=== PATIENT | female | born 2000 | race Caucasian/White ===

== ENCOUNTER 2024-09-24 13:55 | Outpatient (CLI) | payer BC, SELFPAY ==
--- OUTSIDE RECORDS SUMMARY | 2024-09-24 13:59 | XMS_ITS | Clinical Summary ---
[facility] Address [address] [address] Care Team Providers Care Sheet Rock Taper Helper Name Role Phone Lenora Rose PA-C Primary Care Provider Source Comments You are receiving this document as you are listed as the primary care provider,follow-up provider, or the patient has been referred to you for consultation.This is in compliance with the Medicare and[facility] E[facility] Incentive [facility],which states Providers who transition their patient to another setting of careor provider of care or refers their patient to another provider of care shouldprovide summary care record for each transition of care or referral. [place] Allergies No known active allergies Medications Medication Sig Dispensed Refills Start Date End Date Status fexofenadine (AKA JOVAN) 180 MG tablet Take 1 tablet by mouth daily (every 24 hours). 30 tablet 11 07/27/2013 Active levonorgestrel (MIRENA) 20 MCG/24HR IUD 1 Each by Intrauterine route once. Active hydrOXYzine HCl (ATARAX) 25 MG tabletIndications:G AD (generalized anxiety disorder) (HRC) 1/2 to 1 tab po q6 hrs prn anxiety 30 Tablet 3 09/20/2020 Active buPROPion (WELLBUTRIN SR) 100 MG 12 hour release tabletIndications:M oderate episode of recurrent major depressive disorder (HRC) TAKE 1 TABLET BY MOUTH EVERY MORNING 90 Tablet 1 03/20/2021 Active venlafaxine (EFFEXORXR) 75 MG 24 hour release capsuleIndications: Moderate episode of recurrent major depressive disorder (HRC),RODRÍGUEZ (generalized anxiety disorder) (HRC) Take 1 Capsule by mouth daily. 90 Capsule 1 03/20/2021 Active amphetamine-dextroa mphetamine (ADDERALL) 10 MG tabletIndications:A ttention deficit hyperactivity disorder (ADHD), predominantly inattentive type (HRC) 1 tab po in the AM and one in the afternoon prn 60 Tablet 06/09/2021 Active Active Problems Problem Noted Date Diagnosed Date PMS (premenstrual syndrome) 09/20/2020 Moderate episode of recurrent major depressive d isorder 11/20/2019 RODRÍGUEZ (generalized anxiety disorder) 11/20/2019 ADHD (attention deficit hyperactivity disorder) 07/23/2012 Overview (2017): ADD (attention deficit disorder with hyperactivity) Seasonal allergic rhinitis 07/23/2012 Episodic mood disorder 08/26/2005 Overview (2017): LW Onset: [id number] ; Mood Disorder Resolved Problems Problem Noted Date Diagnosed Date Resolved Date 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 01/09/2007 Overview (07/05/2016): LW Onset: [id number] Immunizations Name Administration Dates Next Due 4vHPV (Gardasil) 08/31/2014,03/24/2014, 4 DTaP 02/11/2004, 0,1999,1998 DTaP/Hib 10/28/2000 HepA Ped/Adol (1-18 yrs) 11/16/2009,10/16/2007 HepB Adult (Engerix-B, 20+ y rs, 3 dose series) 10/28/2000,05/27/2000,01/24/2000 Hib (ActHIB) 01/24/2000,1999,1999 IPV (Polio) 02/11/2004, 0,1999,1998 Influenza IIV4 (Quadrivalent ) 0.5mL (72778) 11/20/2019,10/11/2017,09/21/2016 MCV4 (Menactra) 09/21/2016,07/27/2013 MCV4 Menveo 2m.+ (two vial) 09/21/2016 MMR 02/11/2004,2000 Pneumococcal 7, PED 10/28/2000,2000,1999 TDAP (ADACEL) 08/09/2011 Varicella 10/16/2007,10/28/2000 Family History Medical History Relation Name Comments Allergies Sister Asthma Sister Diabetes, Type I Negative Family History Diabetes, Type II Negative Family History Heart Disease Negative Family History Relation Name Status Comments Sister Social History Tobacco Use Types Packs/Day Years Used Date Smoking Tobacco: Former Cigarettes Q uit: 08/02/2020 Smokeless Tobacco: Never Tobacco Cessation:Ready to Q uit: No; Counseling Given: No Alcohol Use Standard Drinks/Week Comments Yes 0 (1 standard drink = 0.6 oz pur e alcohol) PHQ-2 Answer Date Recorded PHQ-2 Score 2 10/15/2020 Sex and Gender Information Value Date Recorded Sex Assigned at Not on file Gender Identity Not on file Sexual Orientation Not on file Last Filed Vital Signs Vital Sign Reading Time Taken Comments Blood Pressure 102/67 11/20/2019 11:13 AM CUSTOMER BUSINESS MANAGER Pulse 75 11/20/2019 11:13 AM CUSTOMER BUSINESS MANAGER Temperature 37.4 ??C (99.3 ??F) 08/29/2009 9 :50 AM CDT ORAL C: 37.4 C Respiratory Rate 17 11/20/2019 11:1 3 AM CUSTOMER BUSINESS MANAGER Oxygen Saturation - - Inhaled Oxygen Concentration - - Weight 51.7 kg (114 lb) 03/20/2021 11:0 3 AM CDT Height 157.5 cm (5' 2) 03/20/2021 11:0 3 AM CDT Body Mass Index 20.85 03/20/2021 11:03 AM CDT Plan of Treatment Health Maintenance Due Date Last Done Comments Cervical Cancer Screening Due 1999 Hep C Screening (Preventive Services) 1999 Adult Preventive Visit 2017 Chlamydia 11/20/2020 11/20/2019 DTaP/Tdap/Td (7 - Tdap) 08/09/2021 08/09/20 11, 02/11/2004, 10/28/2000, Additional history exists COVID-19 Vaccine ( season) 2024 Influenza (#1) 2024 11/20/2019, 10/02, 09/21/2016 Zoster/Shingles (1 of 2) 2049 HepB Completed 10/28/2000, 05/03, 01/24/2000 Hib Completed 10/28/2000, 01/03, 1999, Additional history exists Pneumococcal Aged Out 10/28/2000, 07/03, 05/27/2000 No longer eligible based on patient's age to complete this topic IPV (Polio) Completed 02/11/2004, 05/03, 1999, Additional history exists Varicella Completed 10/16/2007, 10/28/2000 HepA Completed 11/16/2009, 10/16/2007 HPV Vaccine Completed 08/31/2014, 03/03, 02/09/2014 MCV4 Completed 09/21/2016, 09/02, 07/27/2013 HIV Screening (Preventive Services) Completed 11/20/2019 RSV Aged Out No longer eligi ble based on patient's age to complete this topic Procedures Procedure Name Priority Date/Time Associated Diagnosis Comments CHLAMYDIA & GC, URINE (14 YEARS AND OLDER) Routine 11/20/2019 12:01 PM CUSTOMER BUSINESS MANAGER Screen for STD (sexually transmitted disease) HIV 1/2 AG/AB 4TH GEN Routine 11/20/2019 11:55 AM CUSTOMER BUSINESS MANAGER Screen for STD (sexually transmitted disease) from Last 3 Months or Most Recently Relevant to Health Maintenance Results * Chlamydia and GC, Urine STD (11/20/2019 12:01 PM CUSTOMER BUSINESS MANAGER) Chlamydia Trachomatis STD Not Detected Not Detected 11/21/2019 12:58 PM CUSTOMER BUSINESS MANAGER [facility] N. gonorrhoeae STD Not Detected Not Detected 11/21/2019 12:58 PM CUSTOMER BUSINESS MANAGER [facility] Urine Non-blood Collection / Unknown 11/20/2019 12:01 PM CUSTOMER BUSINESS MANAGER 11/20/2019 12:02 PM CUSTOMER BUSINESS MANAGER [facility] - 11/21/2019 12:58 PM CUSTOMER BUSINESS MANAGER Test performed by Molecular Detection Lenora Rose PA-C LAB_1 [employer] [facility] [address] [address] [phone] * HIV 1/2 Ag/Ab 4th Generation (11/20/2019 11:55 AM CUSTOMER BUSINESS MANAGER) HIV 1/2 Antigen/Antib serafin (4th generation) Negative (Non Reactive) Negative (Non Reactive) 11/20/2019 4:20 PM CUSTOMER BUSINESS MANAGER [facility] Comment:HIV-1 p24 Antigen an d HIV-1/HIV-2 Antibody not detected Blood Venipuncture / Unknown 11/20/2019 11:55 AM CUSTOMER BUSINESS MANAGER 11/20/2019 11:55 AM CUSTOMER BUSINESS MANAGER Lenora Rose PA-C LAB_[facility] [address] [place], [place] [address] from Last 3 Months or Most Recently Relevant to Health Maintenance Care Teams Sheet Rock Taper Helper Relationship Specialty Start Date End Date Lenora Rose PA-C [address] [place] [address] PCP - General Physician Mud Jack Operator 08/12/20
[2024-09-24 22:51] LABS: Bacterial Vaginosis* Negative (Negative); Candida glab/krus NOT DETECTED (No Detected); Candida species DETECTED (No Detected); Trichomonas vaginalis NOT DETECTED (No Detected)
[2024-09-24 23:23] LABS: Chlamydia DNA Amplified* NOT DETECTED (No Detected); GC DNA Amplified* NOT DETECTED (No Detected)
[2024-09-26 06:35] LABS: HPV Source Cervical; HPV, High Risk by TMA Not Detected
== END 2024-09-24 13:56 | disposition home or self-care (01) ==
PROVIDERS: Visit Provider Registered Nurse
DX: Z11.3 Encounter for screening for infections with a predominantly sexual mode of transmission (principal); Z12.4 Encounter for screening for malignant neoplasm of cervix
CPT/HCPCS: 81513; 87481; 87491; 87591; 87624; 87625; 87661; 88141; 88142

== ENCOUNTER 2024-10-26 15:05 | Outpatient (CLI) | payer BC, SELFPAY ==
--- OUTSIDE RECORDS SUMMARY | 2024-10-26 15:07 | XMS_ITS | Clinical Summary ---
[facility] Organization [facility] Address [address], [place] [address] Care Team Providers Care Delta System Freight Car Cleaner Name Role Phone Lenora Rose PA-C Primary Care Provider [phone] Source Comments You are receiving this document as you are listed as the primary care provider,follow-up provider, or the patient has been referred to you for consultation.This is in compliance with the Medicare and[facility] EHR Incentive Program,which states Providers who transition their patient to another setting of careor provider of care or refers their patient to another provider of care shouldprovide summary care record for each transition of care or referral. 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 01/09/2007 Overview (07/05/2016): LW Onset: [id number] Immunizations Name Administration Dates Next Due 4vHPV (Gardasil) 08/31/2014,03/24/2014, 4 DTaP 02/11/2004, 0,1999,1998 DTaP/Hib 10/28/2000 HepA Ped/Adol (1-18 yrs) 11/16/2009,10/16/2007 HepB Adult (Engerix-B, 20+ y rs, 3 dose series) 10/28/2000,05/27/2000,01/24/2000 Hib (ActHIB) 01/24/2000,1999,1999 IPV (Polio) 02/11/2004, 0,1999,1998 Influenza IIV4 (Quadrivalent ) 0.5mL (71598) 11/20/2019,10/11/2017,09/21/2016 MCV4 (Menactra) 09/21/2016,07/27/2013 MCV4 Menveo 2m.+ [...] Comments Blood Pressure 102/67 11/20/2019 11:13 AM DATA SECURITY ANALYST Pulse 75 11/20/2019 11:13 AM DATA SECURITY ANALYST Temperature 37.4 C (99.3 F) 08/29/2009 9:50 AM CDT ORAL C: 37.4 C Respiratory Rate 17 11/20/2019 11:1 3 AM DATA SECURITY ANALYST Oxygen Saturation - - Inhaled Oxygen Concentration [...] 07/27/2013 HIV Screening (Preventive Services) Completed 11/20/2019 Infant RSV Aged Out No longer eligi ble based on patient's age to complete this topic Procedures Procedure Name Priority Date/Time Associated Diagnosis Comments CHLAMYDIA & GC, URINE (14 YEARS AND OLDER) Routine 11/20/2019 12:01 PM DATA SECURITY ANALYST Screen for STD (sexually transmitted disease) HIV 1/2 AG/AB 4TH GEN Routine 11/20/2019 11:55 AM DATA SECURITY ANALYST Screen for STD (sexually transmitted disease) from Last 3 Months or Most Recently Relevant to Health Maintenance Results * Chlamydia and GC, Urine STD (11/20/2019 12:01 PM DATA SECURITY ANALYST) Chlamydia Trachomatis STD Not Detected Not Detected 11/21/2019 12:58 PM DATA SECURITY ANALYST [facility] N. gonorrhoeae STD Not Detected Not Detected 11/21/2019 12:58 PM DATA SECURITY ANALYST [facility] Urine Non-blood Collection / Unknown 11/20/2019 12:01 PM DATA SECURITY ANALYST 11/20/2019 12:02 PM DATA SECURITY ANALYST [facility] - 11/21/2019 12:58 PM DATA SECURITY ANALYST Test performed by Molecular Detection Lenora Rose PA-C LAB_1 [facility] [facility] [address] [address] [phone] * HIV 1/2 Ag/Ab 4th Generation (11/20/2019 11:55 AM DATA SECURITY ANALYST) HIV 1/2 Antigen/Antib serafin (4th generation) Negative (Non Reactive) Negative (Non Reactive) 11/20/2019 4:20 PM DATA SECURITY ANALYST [facility] Comment:HIV-1 p24 Antigen an d HIV-1/HIV-2 Antibody not detected Blood Venipuncture / Unknown 11/20/2019 11:55 AM DATA SECURITY ANALYST 11/20/2019 11:55 AM DATA SECURITY ANALYST Lenora Rose PA-C LAB[facility] [address] from Last 3 Months or Most Recently Relevant to Health Maintenance Care Teams Delta System Freight Car Cleaner Relationship Specialty Start Date End Date Lenora Rose PA-C [address] [place] [address] PCP - General Physician Cardiopulmonary Supervisor 08/12/20
[2024-10-26 15:17] LABS: Clue Cells >20% Clue Cells Seen (None Seen); Trichomonas No Trichomonas Seen (None Seen); Yeast No Yeast Seen (None Seen)
== END 2024-10-26 15:06 | disposition home or self-care (01) ==
PROVIDERS: Visit Provider Advanced Practice Midwife
DX: N89.8 Other specified noninflammatory disorders of vagina (principal)
CPT/HCPCS: 87210